=== PATIENT | male | born 1990 | race African-American/Black ===

== ENCOUNTER 2020-03-01 09:26 | Emergency (ER) | payer SELFPAY ==
--- OUTSIDE RECORDS SUMMARY | 2020-03-01 10:00 | XMS REPORT | Continuity of Care Document ---
:1990 Author Organization [facility] t Address [address] [place] [id number] Care Team Providers Name Role Phone Unavailable Unavailable Unavailable Problems This patient has no known problems. Allergies, Adverse Reactions, Alerts This patient has no known allergies or adverse reactions. Medications This patient has no known medications. Procedures This patient has no known procedures. Results Test Description Test Time Test Comments Results Result Comments Source Urine Culture 2019-07-04 C Urine Added by No growth at 24 10:43:55 [id number] hours. No growth at 48 hours. Comprehensive Metabolic Panel 2019-07-03 16:06:04 Test Item Value Reference Range Interpretation Comme nts Sodium Level (test code = Sodium Level) 140.0 mmol/L 135.0-145.0 Potassium Level (test code = Potassium Level) 4.0 mmol/L 3.5-5.1 Chloride Level (test code = Chloride Level) 98 mmol/L 98-105 CO2 (test code = CO2) 29 mmol/L 22-29 Anion Gap (test code = Anion Gap) 13 mmol/L 7-16 BUN (test code = BUN) 13.80 mg/dL 6.00-20.00 Creatinine Level (test code = Creatinine Level) 1.20 mg/dL 0.70-1 .20 BUN/Creat Ratio (test code = BUN/Creat Ratio) 12 N Glucose Level (test code = Glucose Level) 65 mg/dL 70-115 L Calcium Level (test code = Calcium Level) 10.3 mg/dL 8.3-10.5 Alk Phos (test code = Alk Phos) 67 U/L 40-129 Bilirubin Total (test code = Bilirubin Total) 0.4 mg/dL 0.1-0.9 Albumin Level (test code = Albumin Level) 4.9 g/dL 3.5-5.2 Protein Total (test code = Protein Total) 8.0 g/dL 6.4-8.3 ALT (test code = ALT) 24 U/L 1-41 AST (test code = AST) 52 U/L 1-40 H Globulin (test code = Globulin) 3.1 g/dL 2.9-3.1 A/G Ratio (test code = A/G Ratio) 1.6 ratio N Comprehensive Metabolic [id number] 16:06:04 Test Item Value Reference Range Interpretation Comments Sodium Level (test 140.0 mmol/L 135.0-145.0 code = Sodium Level) Potassium Level 4.0 mmol/L 3.5-5.1 (test code = Potassium Level) Chloride Level (test 98 mmol/L 98-105 code = Chloride Level) CO2 (test code = 29 mmol/L 22-29 CO2) Anion Gap (test code 13 mmol/L 7-16 = Anion Gap) BUN (test code = 13.80 mg/dL 6.00-20.00 BUN) Creatinine Level 1.20 mg/dL 0.70-1.20 (test code = Creatinine Level) BUN/Creat Ratio 12 N (test code = BUN/Creat Ratio) Glucose Level (test 65 mg/dL 70-115 L code = Glucose Level) Calcium Level (test 10.3 mg/dL 8.3-10.5 code = Calcium Level) Alk Phos (test code 67 U/L 40-129 = Alk Phos) Bilirubin Total 0.4 mg/dL 0.1-0.9 (test code = Bilirubin Total) Albumin Level (test 4.9 g/dL 3.5-5.2 code = Albumin Level) Protein Total (test 8.0 g/dL 6.4-8.3 code = Protein Total) ALT (test code = 24 U/L 1-41 ALT) AST (test code = 52 U/L 1-40 H AST) Globulin (test code 3.1 g/dL 2.9-3.1 = Globulin) A/G Ratio (test code 1.6 ratio N = A/G Ratio) eGFR AA (test code = >60 N eGFR (e stimated eGFR AA) mL/min/1.73 m2 Glomerular Filtration Rate ) is an estimated va lue, calculated from the patient's serum creatinine usin g the MDRD equation. It is NOT the patient 's actual GFR. The eGFR provides a more clinically usef ul measure of kidn ey disease than se rum creatinine alone.This calculation roberto es sex and race in to account, if the information is provided. If th e race is not provided, and t he patient is -[place] n, multiply by 1.2 12. If sex is not provided, and t he patient is fema le, multiply by 0.7 42. Results for pat ients <18 years of ag e have not been validated by th e MDRD study and should be interpreted wit h caution. eGFR R esult Interpretation: eGFR > or = 60 is in the Normal RangeeGF R < 60 may mean kid ekta diseaseeGFR < 1 5 may mean kidney failure Rang es recommended by the National Kidney Foundation, http://nkdep.ni h.gov Alcohol [id number] 16:06:04 Test Item Value Reference Range Interpretation Comments Ethanol Level (test <0.00 g/dL 0.00-0.01 Intoxica khalif 0.080 g/dL code = Ethanol or more Level) Ethanol Inst (test <0 N code = Ethanol Inst) Comprehensive Metabolic [id number] 16:06:04 Test Item Value Reference Range Interpretation Comments Sodium Level (test 140.0 mmol/L 135.0-145.0 code = Sodium Level) Potassium Level 4.0 mmol/L 3.5-5.1 (test code = Potassium Level) Chloride Level (test 98 mmol/L 98-105 code = Chloride Level) CO2 (test code = 29 mmol/L 22-29 CO2) Anion Gap (test code 13 mmol/L 7-16 = Anion Gap) BUN (test code = 13.80 mg/dL 6.00-20.00 BUN) Creatinine Level 1.20 mg/dL 0.70-1.20 (test code = Creatinine Level) BUN/Creat Ratio 12 N (test code = BUN/Creat Ratio) Glucose Level (test 65 mg/dL 70-115 L code = Glucose Level) Calcium Level (test 10.3 mg/dL 8.3-10.5 code = Calcium Level) Alk Phos (test code 67 U/L 40-129 = Alk Phos) Bilirubin Total 0.4 mg/dL 0.1-0.9 (test code = Bilirubin Total) Albumin Level (test 4.9 g/dL 3.5-5.2 code = Albumin Level) Protein Total (test 8.0 g/dL 6.4-8.3 code = Protein Total) ALT (test code = 24 U/L 1-41 ALT) AST (test code = 52 U/L 1-40 H AST) Globulin (test code 3.1 g/dL 2.9-3.1 = Globulin) A/G Ratio (test code 1.6 ratio N = A/G Ratio) eGFR AA (test code = >60 N eGFR (e stimated eGFR AA) mL/min/1.73 m2 Glomerular Filtration Rate ) is an estimated va lue, calculated from the patient's serum creatinine usin g the MDRD equation. It is NOT the patient 's actual GFR. The eGFR provides a more clinically usef ul measure of kidn ey disease than se rum creatinine alone.This calculation roberto es sex and race in to account, if the information is provided. If th e race is not provided, and t he patient is -[place], multiply by 1.2 12. If sex is not provided, and t he patient is fema le, multiply by 0.7 42. Results for pat ients <18 years of ag e have not been validated by th e MDRD study and should be interpreted wit h caution. eGFR R esult Interpretation: eGFR > or = 60 is in the Normal RangeeGF R < 60 may mean kid ekta diseaseeGFR < 1 5 may mean kidney failure Rang es recommended by the National Kidney Foundation, http://nkdep.ni h.gov eGFR Non-AA (test >60.00 N eGFR (jalyn mated code = eGFR Non-AA) mL/min/1.73 m2 Glomer ular Filtration Rate ) is an estimated va lue, calculated from the patient's serum creatinine usin g the MDRD equation. It is NOT the patient 's actual GFR. The eGFR provides a more clinically usef ul measure of kidn ey disease than se rum creatinine alone.This calculation roberto es sex and race in to account, if the information is provided. If th e race is not provided, and t he patient is -[place], multiply by 1.2 12. If sex is not provided, and t he patient is fema le, multiply by 0.7 42. Results for pat ients <18 years of ag e have not been validated by e MDRD study and should be interpreted wit h caution. eGFR R esult Interpretation: eGFR > or = 60 is in the Normal RangeeGF R < 60 may mean kid ekta diseaseeGFR < 1 5 may mean kidney failure Rang es recommended by the National Kidney Foundation, http://nkdep.ni h.gov Urine Drug [id number] 15:43:16 Test Item Value Reference Range Interpretation Comments Amphetamine Screen Ur Negative Negative (test code = Amphetamine Screen Ur) Barbiturate Screen Ur Negative Negative (test code = Barbiturate Screen Ur) Benzodiazepines Ur (test Negative Negative code = Benzodiazepines Ur) Cocaine Screen Ur (test Negative Negative code = Cocaine Screen Ur) U Methadone Scr (test Negative Negative code = U Methadone Scr) Opiate Screen Ur (test Negative Negative code = Opiate Screen Ur) U PCP Scrn (test code = Negative Negative U PCP Scrn) Cannabinoid Screen Ur POSITIVE Negative A (test code = Cannabinoid Screen Ur) U TCA (test code = U Negative Negative The res ults of all TCA) drug screen bernadette ts are only preliminar y. Clinical consideration a nd professional ju dgment should be appli ed to any drug of abu se test result, particularly wh en preliminary pos itive results are obt ained. Please order a separate confir matory test if desired . Urinalysis [id number] 15:17:47 Test Item Value Reference Range Interpretation Comments UA WBC (test code = UA WBC) 0-5 0-5 UA RBC (test code = UA RBC) 0-5 0-5 UA Bacteria (test code = UA Bacteria) Few A UA Squam Epithelial (test code = UA 0-5 Squam Epithelial) UA Mucous (test code = UA Mucous) Few A Urinalysis with Culture, if [id number] 15:09:20 Test Item Value Reference Range Interpretation Comments UA Color (test code = MARIELY Yellow A UA Color) UA Appear (test code = CLEAR Clear UA Appear) UA pH (test code = UA 6.5 pH) UA Spec Grav (test code 1.029 1.001-1.035 = UA Spec Grav) UA Glucose (test code = NEG Negative UA Glucose) UA Bili (test code = UA 1 mg/dL Negative A Bili) UA Ketones (test code = 15 mg/dL Negative A UA Ketones) UA Blood (test code = 25 cells/mcL Negative A UA Blood) UA Protein (test code = NEG Negative UA Protein) UA Urobilinogen (test 12 mg/dL >0.2 A code = UA Urobilinogen) UA Nitrite (test code = NEG Negative UA Nitrite) UA Leuk Est (test code NEG Negative = UA Leuk Est) UA Micro Ind? (test Indicated Not Indicated A Result created by code = UA Micro Ind?) rule GL_SJM_UA_MICRO _IN D Automated [id number] 15:06:06 Test Item Value Reference Range Interpretation Comments Neutro Auto (test code = Neutro 60.7 % 36.0-70.0 Auto) Lymph Auto (test code = Lymph Auto) 24.0 % 12.0-44.0 [place] Auto (test code = [place] Auto) 14.5 % 0.0-11.0 H Eos, Auto (test code = Eos, Auto) 0.2 % 0.0-7.0 Basophil Auto (test code = Basophil 0.4 % 0.0-2.0 Auto) Neutro Absolute (test code = Neutro 4.9 x10 1.6-7.4 Absolute) Lymph Absolute (test code = Lymph 1.95 x10 .50-4.60 Absolute) [place] Absolute (test code = [place] 1.18 x10 .00-1.20 Absolute) Eos Absolute (test code = Eos 0.02 x10 0.00-0.74 Absolute) Baso Absolute (test code = Baso 0.03 x10 0.00-0.21 Absolute) IG [id number] 15:06:06 Test Item Value Reference Range Interpretation Comments IG (test code = IG) 0.2 % 0.0-5.0 IG Abs (test code = IG Abs) 0 x10 N Complete Blood Count with [id number] 15:06:05 Test Item Value Reference Range Interpretation Comments WBC (test code = WBC) 8.1 x10 4.4-10.5 RBC (test code = RBC) 5.42 x10 4.10-5.70 Hgb (test code = Hgb) 17.2 g/dL 13.4-17.4 Hct (test code = Hct) 50.1 % 38.7-52.0 MCV (test code = MCV) 92.40 fL 80.00-100.00 MCHC (test code = 34.30 g/dL 32.00-37.50 MCHC) RDW CV (test code = 14.2 % 11.5-14.5 RDW CV) MCH (test code = MCH) 31.7 pg 27.0-32.5 Platelets (test code = 190.0 x10 140.0-440.0 Platelets) MPV (test code = MPV) 9.5 fL N Slide Review (test Auto Auto Result cr eated by code = Slide Review) GL_SJM_ SLIDE_REV_AUTO nRBC (test code = 0 N nRBC) NRBC Abs (test code = 0.00 x10 N NRBC Abs) IPF (test code = IPF) 0 % N
[2020-03-01 10:11] LABS: Absolute Lymphocytes (CBC) 1.4 K/uL (0.7-4.9); Basophils % 0.4 % (0-1.3); Hematocrit 45.9 % (39.6-49.0); Lymphocytes % 14.1 % (15.3-44.8); MPV 6.9 fL (7.6-11.3); RBC Red Blood Cell Count 4.93 M/uL (4.33-5.43)
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
[2020-03-01] MEDS ORDERED: ONDANSETRON 4 MG/2 ML VIAL ONE (10:13)
[2020-03-01] MEDS ORDERED: TETANUS & DIPHTHERIA TOX,ADULT 0.5 ML VIAL ONE (10:13)
[2020-03-01] MEDS ORDERED: NA CHLORIDE 0.9% 100 ML IV ONE (10:13)
[2020-03-01] MEDS ORDERED: FENTANYL CITR 100 MCG/2 ML ONE (10:13)
[2020-03-01] MEDS ORDERED: CEFAZOLIN/SWI 1gm 1 GM/10 ML SYR ONE (10:13)
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
[2020-03-01 10:30] LABS: BUN Blood Urea Nitrogen 10 mg/dL (7-18); Bicarbonate 23 mmol/L (21-32); Glucose Level 96 mg/dL (74-106); Potassium 3.7 mmol/L (3.5-5.1); Sodium Level 141 mmol/L (136-145)
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
[2020-03-06 09:23] VITALS: O2SAT 100
[2020-03-06 09:26] VITALS: BP 141/81; TEMP 98
== END 2020-03-01 11:11 | disposition home or self-care (01) ==
LOC: ER 09:26
DX: S02.2XXA Fracture of nasal bones, initial encounter for closed fracture (principal); F07.81 Postconcussional syndrome; S41.111A Laceration without foreign body of right upper arm, initial encounter; S51.811A Laceration without foreign body of right forearm, initial encounter; Y04.8XXA Assault by other bodily force, initial encounter; Y93.9 Activity, unspecified; Y92.009 Unspecified place in unspecified non-institutional (private) residence as the place of occurrence of the external cause; I10 Essential (primary) hypertension; F17.210 Nicotine dependence, cigarettes, uncomplicated; Z23 Encounter for immunization
CPT/HCPCS: 36415; 70450; 70486; 71045; 72125; 76377; 80048; 85025; 90471; 90714; 96374; 96375; 99285; G0390; J0690; J2405; J3010